=== PATIENT | male | born 1990 | race Caucasian/White ===

== ENCOUNTER 2016-12-23 15:09 | Emergency (ER) | payer OTHER ==
[2016-12-23 15:38] VITALS: RESP 20; O2SAT 100
[2016-12-23] MEDS ORDERED: Bacitracin 500 Units/gm Oint Foilpak UD TOP ONE (16:58)
[2016-12-23] MEDS ORDERED: Bacitracin 500 Units/gm Oint Foilpak UD ONE (17:01)
--- NOTE | 2016-12-23 17:11 | C.PDOC ---
History Of Present Illness 26 yr old male presents to the ER stating yesterday he scratched himself with a nail on the right hand. Patient reports pain to the right thumb, 2nd and 4th finger which radiates up his arm. Denies fever, chest pain, SOB, nausea, vomiting, weakness or numbness. Time Seen by Provider: 12/23/16 16:25 Chief Complaint (Nursing): Abnormal Skin Integrity History Per: Patient History/Exam Limitations: no limitations Onset/Duration Of Symptoms: Days (1) Past Medical History Reviewed: Historical Data, Nursing Documentation, Vital Signs Vital Signs: Last Vital Signs Temp 97.9 F 12/23/16 17:41 Pulse 68 12/23/16 17:41 Resp 20 12/23/16 17:41 BP 117/83 12/23/16 17:41 Pulse Ox 100 12/23/16 17:41 Family History: States: No Known Family Hx - Social History Hx Alcohol Use: No Hx Substance Use: No - Immunization History Hx Tetanus Toxoid Vaccination: No Hx Influenza Vaccination: No Review Of Systems Constitutional: Negative for: Fever Cardiovascular: Negative for: Chest Pain Respiratory: Negative for: Shortness of Breath Gastrointestinal: Negative for: Nausea, Vomiting Skin: Positive for: Other (scratches to the right thumb, 2nd and 4th finger. ) Neurological: Negative for: Weakness, Numbness Physical Exam - Physical Exam Appears: Non-toxic, No Acute Distress Skin: Warm, Dry, No Rash, Other (Right Hand - 3cm abrasion to the lateral 2nd digit. 2mm abrasion to the distal 4th digit. 2mm abrasion to the right thumb, dorsal aspect. no erythema or warmth surrounding any abrasion) Head: Atraumatic, Normacephalic Oral Mucosa: Moist Chest: Symmetrical, No Tenderness Cardiovascular: Rhythm Regular, No Murmur Respiratory: Normal Breath Sounds, No Rales, No Rhonchi, No Stridor, No Wheezing Extremity: Normal ROM, Capillary Refill (<2), No Swelling Pulses: Left Radial: Normal, Right Radial: Normal Neurological/Psych: Oriented x3, Normal Speech, Normal Motor ED Course And Treatment O2 Sat by Pulse Oximetry: 100 (RA) Pulse Ox Interpretation: Normal Medical Decision Making Medical Decision Making: PLAN: * Bacitracin TOP * Keflex PO * Tylenol PO * Tetanus IM Disposition Counseled Patient/Family Regarding: Diagnosis, Need For Followup, Rx Given - Disposition Referrals: [facility] [Outside] [facility] [Outside] Disposition: HOME/ ROUTINE Disposition Time: 17:28 Condition: STABLE Additional Instructions: Take antibiotics and pain medicine as prescribed. Keep clean and dry. Follow up in medical clinic. Return for any worsening complaints. Prescriptions: Cephalexin [Keflex] 500 mg PO Q6 #20 capsule Ibuprofen [Motrin] 600 mg PO TID #30 tab Instructions: Abrasion (ED) Forms: [facility] (Wolof), General Discharge Instructions - Clinical Impression Clinical Impression: Abrasion of multiple sites of right hand and finger - PA / DIRECTOR OF [employer] / Resident Statement MD/DO has reviewed & agrees with the documentation as recorded. - Scribe Statement The provider has reviewed the documentation as recorded by the Scribe Jasmina Plunkett All medical record entries made by the Scribe were at my direction and personally dictated by me. I have reviewed the chart and agree that the record accurately reflects my personal performance of the history, physical exam, medical decision making, and the department course for this patient. I have also personally directed, reviewed, and agree with the discharge instructions and disposition.
[2016-12-23 17:41] VITALS: BP 117/83; PULSE 68; TEMP 97.9
== END 2016-12-23 17:43 | disposition home or self-care (01) ==
LOC: C.ER 15:09
DX: S60.511A Abrasion of right hand, initial encounter (principal); W45.0XXA Nail entering through skin, initial encounter; Y93.89 Activity, other specified; Y92.9 Unspecified place or not applicable